=== PATIENT | male | born 1975 | race Caucasian/White ===

== ENCOUNTER 2021-02-12 18:56 | Emergency (ER) | payer BC ==
[2021-02-12] MEDS ORDERED: LORazepam 2 MG/ML SDV IVPUSH ONE (19:13)
[2021-02-12] MEDS ORDERED: Sodium Chloride 0.9% 10 ML Syringe FLUSH PRN (19:13)
--- NOTE | 2021-02-12 19:36 | EDM.PDOC ---
ED HPI GENERAL MEDICAL PROBLEM - General Stated Complaint: CUT OFF TIP OF PINKY LEFT HAND Time Seen by Provider: 02/12/21 19:31 Source of Information: Reports: Patient History Limitations: Reports: No Limitations - History of Present Illness INITIAL COMMENTS - FREE TEXT/NARRATIVE: 45 y/o M was cutting table legs with a chop saw and accidently chopped off the tip of his left pinky finger. He denies other injury. Pt [place] close to the hospital and ran on foot to the ER. He has no other complaints. Is up to date on his vaccinations. - Related Data Allergies Allergy/AdvReac Type Severity Reaction Status Date / Time No Known Allergies Allergy Verified 02/12/21 20:20 Home Meds: Home Meds . [No Known Home Meds] 09/27/17 [History] Review of Systems - Review of Systems Review Of Systems: Comprehensive ROS is negative, except as noted in HPI. ED EXAM, GENERAL - Physical Exam Exam: See Below Exam Limited By: No Limitations General Appearance: Alert, Anxious Respiratory/Chest: No Respiratory Distress, Lungs Clear, Normal Breath Sounds, No Accessory Muscle Use, Chest Non-Tender Cardiovascular: Normal Peripheral Pulses, Regular Rate, Rhythm, No Edema, No Gallop, No JVD, No Murmur, No Rub Peripheral Pulses: 2+: Radial (L), Radial (R) GI/Abdominal: Soft, Non-Tender (Male) Exam: Deferred Rectal (Males) Exam: Deferred Back Exam: Normal Inspection, Full Range of Motion Extremities: Other (amputation of distal 2/3 of distal phalanx of 5th digit on left hand. Bleeding controlled with pressure dressing. ) Course - Vital Signs Last Recorded V/S: Last Vital Signs Temp 98.1 F 02/12/21 20:08 Pulse 77 02/12/21 20:08 Resp 18 02/12/21 20:08 BP 126/71 02/12/21 20:08 Pulse Ox 98 02/12/21 20:08 - Orders/Labs/Meds Orders: Active Orders 24 hr Category Date Time Status Peripheral IV Care [RC] . DIRECTED Care 02/12/21 19:13 Ordered Sodium Chloride 0.9% [Saline Flush] Med 02/12/21 19:13 Ordered 10 ml FLUSH ASDIRECTED PRN Peripheral IV Insertion Adult [OM.PC] Routine Oth 02/12/21 19:13 Ordered Medication Orders Sodium Chloride (Sodium Chloride 0.9% 10 Ml Syringe) 10 ml FLUSH ASDIRECTED PRN PRN Reason: Keep Vein Open Last Admin: 02/12/21 19:32 Dose: 10 ml Documented by: Meds: Medications Generic Name Dose Route Start Last Admin Trade Name Fre[place] PRN Reason Stop Dose Admin Sodium Chloride 10 ml 02/12/21 19:13 02/12/21 19:32 Sodium Chloride 0.9% 10 Ml Syringe FLUSH 10 ml ASDIRECTED PRN Administration Keep Vein Open Discontinued Medications Generic Name Dose Route Start Last Admin Trade Name Freq PRN Reason Stop Dose Admin Hydromorphone HCl 1 mg 02/12/21 19:44 02/12/21 20:06 Hydromorphone 0.5 Mg/0.5 Ml Syringe IVPUSH 02/12/21 19:45 1 mg ONETIME ONE Administration Cefazolin Sodium 1 gm/ Sodium 50 mls @ 100 mls/hr 02/12/21 19:43 Chloride IV 02/12/21 20:12 ONETIME ONE Lorazepam 2 mg 02/12/21 19:13 02/12/21 19:32 Lorazepam 2 Mg/Ml Sdv IVPUSH 02/12/21 19:14 2 mg ONETIME ONE Administration - Re-Assessments/Exams Free Text/Narrative Re-Assessment/Exam: 02/12/21 20:53 The pt has a traumatic amputation of rj distal phalanx of the fifth digit on the L hand. I spoke with Dr. Eaton at [facility] about the pt. Dr. Eaton would liek the pt to come to tomorrow to the ER to check in for a surgical revision zach gurdeep of the amputation. Uma asked for a Gram of Ancef and that the pt be NPO after midnight. I will discharge him home with some Norcos for pain control. Departure - Departure Time of Disposition: 20:55 Disposition: Home, Self-Care 01 Condition: Fair Clinical Impression: Finger amputation, traumatic Qualifiers: Encounter type: initial encounter Qualified Code(s): S68.119A - Complete traumatic metacarpophalangeal amputation of unspecified finger, initial encounter - Discharge Information *PRESCRIPTION DRUG MONITORING PROGRAM REVIEWED*: Not Applicable *COPY OF PRESCRIPTION DRUG MONITORING REPORT IN PATIENT MIMI: Not Applicable Additional Instructions: RX: [place] Use tylenol and Ibuprofen as needed for pain. Use Norocs when pain cannot be controlled with over the counter medications. Do not eat or drink after midnight. Go to [facility] ER in [place] tomorrow at 10 am to the ER to check in for surgery. If any new symptoms or concerns develop return to the ER. Sepsis Event Note (ED) - Focused Exam Vital Signs: Vital Signs Temp Pulse Resp BP Pulse Ox 02/12/21 20:08 98.1 F 77 18 126/71 98 - My Orders Last 24 Hours: My Active Orders 02/12/21 19:13 Peripheral IV Care [RC] . DIRECTED Sodium Chloride 0.9% [Saline Flush] 10 ml FLUSH ASDIRECTED PRN Peripheral IV Insertion Adult [OM.PC] Routine - Assessment/Plan Last 24 Hours: My Active Orders 02/12/21 19:13 Peripheral IV Care [RC] . DIRECTED Sodium Chloride 0.9% [Saline Flush] 10 ml FLUSH ASDIRECTED PRN Peripheral IV Insertion Adult [OM.PC] Routine
[2021-02-12] MEDS ORDERED: ceFAZolin 1 GM in Sodium Chloride 0.9% 50 ML IV ONE (19:43)
[2021-02-12] MEDS ORDERED: HYDROmorphone 0.5 MG/0.5 ML Syringe IVPUSH ONE (19:44)
--- NOTE | 2021-02-12 19:59 | CR ---
PROCEDURE INFORMATION: Exam: XR Left Finger(s) Exam date and time: 02/12/2021 7:17 PM Age: 45 years old Clinical indication: Other: Finger amputation TECHNIQUE: Imaging protocol: XR Left fingers. Views: Minimum 2 views. COMPARISON: No relevant prior studies available. FINDINGS: Bones/joints: Acute amputation of the distal phalanx of the 5th finger near the base of the phalanx. Soft tissues: Soft tissue injury with amputation distal 5th finger. IMPRESSION: 1. Acute amputation of the distal phalanx of the 5th finger near the base of the phalanx. 2. Soft tissue injury with amputation distal 5th finger.
[2021-02-12] MEDS ORDERED: Acetaminophen/HYDROcodone 325-5 MG Tab ONE (21:04)
== END 2021-02-12 21:20 | disposition home or self-care (01) ==
LOC: DL.ED 18:56
DX: S68.117A Complete traumatic metacarpophalangeal amputation of left little finger, initial encounter (principal); W27.0XXA Contact with workbench tool, initial encounter
CPT/HCPCS: 73140-F4; 96365; 96375; 99283-25; J0690; J1170; J2060

== ENCOUNTER 2022-05-16 18:34 | Emergency (ER) | payer BC ==
[2022-05-16] MEDS ORDERED: Cyclobenzaprine 10 MG Tab PO ONE (18:35)
[2022-05-16] MEDS ORDERED: Orphenadrine 60 MG/2 ML Inj IM ONE (19:52)
[2022-05-16] MEDS ORDERED: Dexamethasone 4 MG/ML SDV IM ONE (19:53)
[2022-05-16] MEDS ORDERED: Ketorolac 30 MG/ML SDV IM ONE (21:04)
[2022-05-16] MEDS ORDERED: Cyclobenzaprine 10 MG Tab ONE (21:34)
== END 2022-05-16 21:37 | disposition home or self-care (01) ==
LOC: DL.ED 18:34
DX: M62.838 Other muscle spasm (principal); M54.10 Radiculopathy, site unspecified
CPT/HCPCS: 72125; 72128; 96372; 99284; 99284-25; A9270-GY; J1100; J1885; J2360

== ENCOUNTER 2024-07-24 12:05 | Emergency (ER) | payer BC ==
[2024-07-24] MEDS ORDERED: Sodium Chloride 0.9% 10 ML Syringe FLUSH PRN (12:22)
[2024-07-24] MEDS: fentaNYL 100 MCG/2 ML SDV IVPUSH ONE ×2 (12:32→13:30)
[2024-07-24 12:33] LABS: BASOPHILS PERCENT AUTO 0.5 % (0.0-1.0); EOSINOPHILS PERCENT AUTO 2.3 % (1.0-3.0); HEMATOCRIT 49.2 % (40.0-54.0); HEMOGLOBIN 16.6 g/dL (14.0-18.0); LYMPHOCYTES PERCENT AUTO 16.5 % (20.5-50.1); MEAN CORPUSCULAR HEMOGLOBIN 30.5 pg (27.0-34.0); MEAN CORPUSCULAR HGB CONC 33.7 g/dL (33.0-35.0); MEAN CORPUSCULAR VOLUME 90.3 fL (80-100); MONOCYTES PERCENT AUTO 7.1 % (2-8); NEUTROPHILS PERCENT AUTO 73.6 % (42.2-75.2); PLATELET COUNT,PLT 228 10^3/uL (150-450); RED BLOOD CELL COUNT 5.45 10^6/uL (4.6-6.2); WHITE BLOOD CELL COUNT,WBC 8.9 10^3/uL (5.0-10.0)
[2024-07-24] MEDS: Ondansetron 4 MG/2 ML SDV IVPUSH ONE (12:33)
[2024-07-24 12:36] LABS: APPEARANCE,URINE CLEAR (CLEAR); BILIRUBIN,URINE NEGATIVE (NEGATIVE); COLOR,URINE YELLOW (YELLOW); GLUCOSE,URINE NEGATIVE (NEGATIVE); KETONES,URINE NEGATIVE (NEGATIVE); LEUKOCYTE ESTERASE,URINE NEGATIVE (NEGATIVE); NITRITE,URINE NEGATIVE (NEGATIVE); OCCULT BLOOD,URINE MODERATE (NEGATIVE); PROTEIN,URINE NEGATIVE (NEGATIVE); UROBILINOGEN,URINE 0.2 mg/dL (0.2-1.0)
[2024-07-24 12:52] LABS: PROTHROMBIN TIME 10.6 SEC (9.0-12.0); PTT,PARTIAL THROMBOPLSTIN TIME 22.7 SEC (22.0-34.0)
[2024-07-24 13:04] LABS: A/G RATIO 1.3; ALANINE AMINOTRANSFERASE,ALT 47 U/L (16-63); ALBUMIN 4.4 g/dL (3.4-5.0); ALKALINE PHOSPHATASE 73 U/L (46-116); ASPARTATE AMNIOTRANSFERASE,AST 24 U/L (15-37); BILIRUBIN TOTAL 0.4 mg/dL (0.2-1.0); BLOOD UREA NITROGEN,BUN 22 mg/dL (7-18); BUN/CREATININE RATIO 23.4 (No establ ref range); CALCIUM 9.4 mg/dL (8.5-10.1); CARBON DIOXIDE,CO2 29 mmol/L (21-32); CHLORIDE,CL 102 mmol/L (98-107); CREATININE 0.94 mg/dL (0.70-1.30); EST CRCL DRUG DOSING (CG) 93.99 mL/min; GLUCOSE RANDOM 126 mg/dL (70-99); PROTEIN TOTAL,TP 7.7 g/dL (6.4-8.2); SODIUM,NA 139 mmol/L (136-145)
[2024-07-24 13:07] LABS: C-REACTIVE PROTEIN < 0.50 ng/dL (<=0.50); ESTIMATED GFR 101 mL/min (>=60)
[2024-07-24] MEDS: Iopamidol 612 MG/ML 100 ML Bottle IVPUSH ONE (13:10)
[2024-07-24 13:17] LABS: BACTERIA,URINE FEW /HPF (0-FEW/HPF); EPITHELIAL CELLS,URINE RARE /HPF (NOT SEEN); WBC,URINE 0-5 /HPF (0-5/HPF)
[2024-07-24 13:18] LABS: AMORPHOUS SEDIMENT,URINE FEW /HPF (NOT SEEN); MUCUS,URINE MODERATE /LPF (NOT SEEN)
[2024-07-24] MEDS: Sodium Chloride 0.9% 1,000 ML IV ONE (13:31)
[2024-07-24] MEDS: Ketorolac 30 MG/ML SDV IVPUSH ONE (14:13)
[2024-07-24] MEDS: Tamsulosin 0.4 MG Cap.ER PO ONE (14:13)
== END 2024-07-24 14:35 | disposition home or self-care (01) ==
LOC: DL.ED 12:05
DX: N20.2 Calculus of kidney with calculus of ureter (principal)
CPT/HCPCS: 36415; 74178; 80053; 81001; 83605; 85025; 85610; 85730; 86140; 96361; 96374; 96375; 96376; 99284; A9270; J1885; J2405; J3010; J7030; Q9967